=== PATIENT | female | born 1995 | race African-American/Black ===

== ENCOUNTER 2017-05-11 12:38 | Emergency (ER) | payer OTHER ==
[~2017-05-11] VITALS: Ht 160 cm; Wt 50.1 kg
[2017-05-11 15:06] LABS: HEMATOCRIT 44.3 % (34.6-47.8); HEMOGLOBIN 14.9 g/dL (11.7-16.4); WHITE BLOOD COUNT 4.2 x10^3/uL (3.4-10)
[2017-05-11 15:12] LABS: BLOOD UREA NITROGEN 9 mg/dL (7-18)
[2017-05-11 15:49] VITALS: BP 127/67
== END 2017-05-11 15:50 | disposition home or self-care (01) ==
LOC: ED 15:30
DX: R06.00 Dyspnea, unspecified (principal); R06.02 Shortness of breath
CPT/HCPCS: 36415; 71010; 80048; 82040; 85025; 93005; 99285

== ENCOUNTER 2018-03-27 19:17 | Emergency (ER) | payer SELFPAY ==
[~2018-03-27] VITALS: Ht 162.6 cm; Wt 53.0 kg
[2018-03-27 19:27] VITALS: BP 139/80
[2018-03-27 20:45] LABS: MICROSCOPIC INDICATED
[2018-03-27 20:49] LABS: CULTURE INDICATED? YES
[2018-03-27 20:51] LABS: HCG UR SG 1.031 (1.003-1.030)
== END 2018-03-27 22:06 | disposition home or self-care (01) ==
LOC: ED 21:25
DX: N30.01 Acute cystitis with hematuria (principal); N92.6 Irregular menstruation, unspecified
CPT/HCPCS: 81001; 81025; 87077; 87086; 87186; 99284

== ENCOUNTER 2019-01-30 18:00 | Emergency (ER) | payer OTHER ==
[~2019-01-30] VITALS: Ht 162.6 cm; Wt 50.8 kg
[2019-01-30 19:25] LABS: HCG UR SG 1.021 (1.003-1.030)
[2019-01-30 19:30] LABS: MICROSCOPIC INDICATED
[2019-01-30 19:31] LABS: CULTURE INDICATED? YES
--- NOTE | 2019-01-30 20:02 | NUR ---
pt resting on gurney, denies needs, monitors in place, call light within reach. awaiting pa for pelvic exam
[2019-01-30 21:01] LABS: WET PREP WBCS MODERATE (FEW)
[2019-01-30 21:05] LABS: CLUE CELLS NONE SEEN (NONE SEEN)
[2019-01-30 21:07] VITALS: BP 105/72
[2019-01-30] MEDS ORDERED: metroNIDAZOLE 500 MG TABLET ONE (21:10)
--- NOTE | 2019-01-30 21:12 | NUR ---
pt medicated per mar
[2019-01-30] MEDS ORDERED: metroNIDAZOLE 500 MG TABLET PO ONE (21:30)
== END 2019-01-30 21:33 | disposition home or self-care (01) ==
LOC: ED 21:27
DX: A59.03 Trichomonal cystitis and urethritis (principal)
CPT/HCPCS: 81001; 81025; 87086; 87210; 87491; 87591; 87808; 99283

== ENCOUNTER 2020-05-07 15:20 | Emergency (ER) | payer OTHER ==
[~2020-05-07] VITALS: Ht 157.5 cm; Wt 52.1 kg
--- NOTE | 2020-05-07 15:36 | NUR ---
25 Y/O FEMALE PRESENTS TO ED WITH C/O MIGRAINE. PER PT "I'VE HAD A MIGRAINE TODAY THAT STARTED AROUND 1130. I STILL HAVE IT. I TOOK A TYLENOL. I HAVE A HISTORY OF MIGRAINES FOR A COUPLE YEARS." NADN. PT PLACED ON CONT PULSE OX,NIBP. NO C/O N/V/D, TRAUMA, SYNCOPE, CP, SOB.
[2020-05-07 15:40] VITALS: BP 123/65
== END 2020-05-07 17:10 ==
LOC: ED 16:55
DX: G43.009 Migraine without aura, not intractable, without status migrainosus (principal); R11.0 Nausea
CPT/HCPCS: 99283

== ENCOUNTER 2020-07-09 17:04 | Emergency (ER) | payer OTHER | END 2020-07-09 17:23 | LOC: ED 17:20 | DX: M54.2 Cervicalgia (principal); Z53.21 Procedure and treatment not carried out due to patient leaving prior to being seen by health care provider ==